=== PATIENT | male | born 1985 | race Caucasian/White ===

== ENCOUNTER → 2018-03-27 07:58 | Outpatient (CLI) | payer BC, SELFPAY ==
--- NOTE | 2018-03-27 08:03 | US_ITS ---
US abdomen limited History:Right upper quadrant pain Ordering Physician:Kiko Clemente MD Patient Age: 32 years Comparison:None Findings: Pancreas:Unremarkable. No obvious mass or abnormal fluid collection. No ductal dilatation Liver:No focal liver lesions demonstrated. Homogeneous echogenicity. No intrahepatic biliary ductal dilatation evident Right Kidney:Unremarkable. Normal size and echogenicity. No hydronephrosis Gallbladder:No gallstones, gallbladder wall thickening, pericholecystic fluid, or biliary dilatation. Impression:Negative gallbladder/right upper quadrant ultrasound
[2018-03-27 09:40] LABS: Amylase 108 U/L (25-125); Lipase 113 u/L (73-393)
== END ==
PROVIDERS: Physician Assistant; PCP Family Medicine; Visit Provider Family Medicine
DX: R74.8 Abnormal levels of other serum enzymes (principal)
CPT/HCPCS: 36415; 76705; 82150; 83690

== ENCOUNTER → 2019-07-15 13:43 | Outpatient (CLI) | payer BC, SELFPAY ==
--- NOTE | 2019-07-15 13:50 | US_ITS ---
PROCEDURE: US SOFT TISSUE HEAD AND NECK CLINICAL INDICATION: LYMPHADENOPATHY COMPARISON: No exams were available for comparison FINDINGS: There are multiple hypoechoic nodules throughout the soft tissues of the left neck in the area of palpable abnormalities. One of the nodules in the area of palpable abnormality measures 1.3 by 3.9 centimeters. Multiple other smaller nodes are noted. At least 7 separate nodes are noted. What is probably a left submandibular lymph node 3.7 x 3.3 centimeters is also noted. Some of the nodes appear hyperemic with increased color Doppler blood flow. Consider postcontrast CT soft tissues of the neck for further evaluation. IMPRESSION: Lymphadenopathy as described. Post inflammatory or neoplastic etiologies would have to be considered. Postcontrast CT soft tissues of the neck is recommended for further assessment. Dictated by: German Diehl 07/15/2019 16:26 Electronically signed by German Diehl in [facility] 07/15/2019 16:26
== END ==
PROVIDERS: PCP Physician Assistant; Visit Provider Physician Assistant
DX: R59.1 Generalized enlarged lymph nodes (principal)
CPT/HCPCS: 76536

== ENCOUNTER → 2019-07-21 16:17 | Outpatient (POV) | payer BC, SELFPAY | PROVIDERS: PCP Physician Assistant; Visit Provider Nurse Practitioner Family | DX: Z00.00 Encounter for general adult medical examination without abnormal findings (principal) ==

== ENCOUNTER → 2019-07-23 10:29 | Outpatient (CLI) | payer BC, SELFPAY ==
--- NOTE | 2019-07-23 10:33 | CT_ITS ---
PROCEDURE: CT SOFT TISSUE NECK W CON CLINICAL HISTORY: LYMPHADENOPATHY COMPARISON: US SOFT TISSUE HEAD AND NECK from 07/15/2019 TECHNIQUE: IV contrast: 75ml Optiray 350 Axial images obtained with sagittal and coronal reformats. All CT scans at the facility use one or more dose reduction, viz: automated exposure control, ma/kV adjustment per patient size (including targeted exams where dose is matched to indication, i.e. head), or iterative reconstruction technique. FINDINGS: There is mild thickening of the adenoids. There is some mild asymmetric thickening of the left palatine tonsils. No obvious abscess. Small calcification is present in the right tonsillar region. The epiglottis and glottic region have an unremarkable appearance as does the thyroid gland. There is a small nodular density in the left parotid gland laterally at 7 mm nonspecific possibly due to small lymph node. Small nodular density is present in the right parotid inferiorly at 6 mm and could also be due to small lymph node. The submandibular glands have an unremarkable appearance. There are enlarged left-sided cervical lymph nodes with the largest node in the jugulodigastric region measuring 3.3 x 2.3 cm superior to the hyoid gland indicating a level 2 lymph node. Enlarged nodes are present posterior to the left sternocleidomastoid at and below the level of the hyoid/level 3 nodes in level 4 nodes with level 3 nodes measuring up to 2.3 by 2.9 cm. Mildly prominent supraclavicular nodes are also present on the left. There are few small nodes in the superior mediastinum. A few small nodes are present in the right neck measuring up to 1.2 x 0.9 cm. No evidence of abscess. The lung apices are clear. IMPRESSION: Left-sided cervical adenopathy as described above. These nodes could be reactive as a response to inflammation or infection. Neoplasm such is lymphoma or metastatic disease is included in the differential diagnosis. The nodes may be slightly smaller compared to the ultrasound measurements of 07/15/2019. Please correlate with physical exam. Ultrasound-guided fine needle aspiration could be performed if clinically desired. Dictated by: Sher Persaud MD 07/24/2019 07:15 Electronically signed by Sher Persaud MD in [facility] 07/24/2019 07:15
== END ==
PROVIDERS: PCP Physician Assistant; Visit Provider Physician Assistant
DX: R59.1 Generalized enlarged lymph nodes (principal)
CPT/HCPCS: 70491; Q9967

== ENCOUNTER → 2019-08-06 12:30 | Outpatient (CLI) | payer BC, SELFPAY ==
--- NOTE | 2019-08-06 12:35 | US_ITS ---
PROCEDURE: US FNA LYMPH NODE CLINICAL INDICATION: LYMPHADENOPATHY COMPARISON: CT SOFT TISSUE NECK W CON from 07/23/2019 TECHNIQUE: Following obtaining informed consent, using aseptic technique and local anesthesia with buffered lidocaine, fine-needle aspiration was performed of the nodule of interest using sonographic guidance. Two passes were made into the nodule with a 21 gauge needle. Specimen was given to cytology. 3 passes were then made into the left neck nodule with an 18 gauge core biopsy needle. One of these was put in RPMI. These passes were performed with some difficulty at with as it was difficult to penetrate the nodule with the core biopsy needle. This was performed carefully due to the close nature of the carotid artery. Patient tolerated the procedure well without evidence of immediate complication. FINDINGS: CYTOLOGY: Negative for malignant cells. Please see cytology report Core biopsy: Fibrovascular connective tissue. No lymph node tissue present Flow cytometry: Prominent lymphoid population. No evidence of non-Hodgkin's lymphoma IMPRESSION: Uneventful ultrasound-guided fine needle aspiration and core biopsy of left neck lymph node. Cytology and flow cytometry are negative for malignancy/lymphoma. The regular core biopsy did not show evidence of lymph node tissue. If no further intervention is performed then, would recommend short-term CT follow-up in 6-8 weeks to confirm stability. The patient tolerated the procedure well without evidence of immediate complications and left the ultrasound suite in stable condition. Dictated by: Sher Persaud MD 08/11/2019 10:27 Electronically signed by Sher Persaud MD in [place] 08/11/2019 10:27
== END ==
PROVIDERS: PCP Physician Assistant; Visit Provider Physician Assistant
DX: R59.1 Generalized enlarged lymph nodes (principal)
CPT/HCPCS: 10005; 76942

== ENCOUNTER 2020-03-11 19:43 | Emergency (ER) | payer BC, SELFPAY ==
[2020-03-11 20:42] VITALS: BP 127/70; PULSE 75; RESP 16; TEMP 36.8; O2SAT 100; BMI 31.0
--- NOTE | 2020-03-11 20:54 | HMH.EDUTC ---
[facility] [place] Disposition Clinical Impression: Viral syndrome Disposition: Home, Self-Care Condition on Discharge: Good Instructions: DI for Viral Syndrome, Preventing the Spread of Coronavirus Discharge Instructions Additional Instructions: Drink plenty of fluids. Take tylenol or ibuprofen for pain or fever. Take the medications as directed. Follow up with your regular doctor. GO TO THE ER FOR ANY WORSENING SYMPTOMS FOLLOW THE DIRECTIONS ON THE COVID-19 HAND OUT THAT WE GAVE YOU REGARDING SELF-ISOLATION UNTIL YOU KNOW YOUR COVID-19 RESULTS Prescriptions: Azithromycin [Z-Gamal 250mg Tab*] 250 mg PO UD DOSE PK #6 tab Transmission Status: Received by [facility] #[id number] Referrals: Cayla Guillermo PA [Primary Care Provider] - Time of Disposition: 21:03 Medical Decision Making - Medical Records Medical records reviewed: No: I reviewed the patient's medical records. - Naveed Inquiry Pt receiving controlled substance: No Vital Signs: 03/11/20 20:42 03/11/20 21:10 Temperature 98.3 F 98.3 F Temperature Source Oral Oral Pulse Rate 75 Pulse Rate [Radial] 75 Respiratory Rate 16 16 Blood Pressure 127/70 Blood Pressure [Right Arm] 127/70 Blood Pressure Mean [Right Arm] 89 Blood Pressure Source Automatic Cuff Blood Pressure Source [Right Arm] Automatic Cuff Blood Pressure Position Sitting Blood Pressure Position [Right Arm] Sitting 02 Sat by Pulse Oximetry 100 Oxygen Delivery Method Room Air Room Air Orders (Tests/Meds): ORDERS Category Date Time Status Full Resp Panel w/COVID ([facility]) Routine Lab 03/11/20 20:40 Received [facility] [place] HPI - General Stated complaint: citlalli covid test Time Seen by Provider: 03/11/20 20:54 Mode of Arrival: Ambulatory Source of Information: Patient Limitations: No Limitations Description of Symptoms (Recalled from Triage Doc. by RN): citlalli covid test, exposed one week ago HEENT Symptoms (Recalled from RN notes): Yes Resp Symptoms (Recalled from RN notes): No Skin Symptoms (Recalled from RN notes): No MS Symptoms (Recalled from RN notes): No Functional Status (Recalled from RN notes): wnl - History of Present Illness Provider Complaint: He states that he was exposed to covid approx 1 week ago. Since then he has felt fine until today. He has started to have sinus congestion and a dry cough. - Related Data Home Medications Medication Instructions Recorded Confirmed Acetaminophen/Dextromethorphan 2 tbsp PO NEEDED PRN 05/16/18 05/16/18 [Daytime Cold & Cough Liquid] Dm/P-Ephed/Acetaminoph/Doxylam 2 tbsp PO NEEDED PRN 05/16/18 05/16/18 [Night Time Cold Med Liquid] Previous Rx's Medication Instructions Recorded Azithromycin [Z-Gamal 250mg Tab*] 250 mg PO UD DOSE PK #6 tab 05/11/19 predniSONE [Prednisone 5mg 5 mg PO DAILY 6 Days #21 tab 05/11/19 Tab] Azithromycin [Z-Gamal 250mg Tab*] 250 mg PO UD DOSE PK #6 tab 03/11/20 Allergies Allergy/AdvReac Type Severity Reaction Status Date / Time shellfish derived Allergy Mild Verified 05/16/18 09:12 egg AdvReac Nausea Verified 05/16/18 09:12 - Worker's Comp Is this a Worker's Comp case?: No [facility] History - Hepatitis A Screen Drug use history?: No High risk sexual behaviors?: No History of sexually transmitted infection?: No Currently employed?: No Childcare worker?: No Do you have indoor plumbing?: Yes Do you have electricity?: Yes Attestation statement:: This patient has been screened for Hepatitis A risk factors. I have reviewed the patient's past medical history: Yes Medical History: Reports:: Gastroesophageal Reflux Disease(GERD) Denies:: Diabetes Mellitus Type 1, Diabetes Mellitus Type 2, Internal Pacemaker, Lung Disease, Seizures Other Surgeries: No: Pacemaker Comment: oral sx - Social History Smoking Status: Current every day smoker Tobacco Type: cigarettes # Packs/Day (cigarettes): 1 Alcohol Intake: never Occupational Status: other Housing: house
[2020-03-11 21:10] VITALS: BP 127/70; PULSE 75; RESP 16; TEMP 36.8; O2SAT 100
[2020-03-13 09:27] LABS: Covid-19 Nasal PCR Sendout UK NOT DETECTED
== END 2020-03-11 21:11 | disposition home or self-care (01) ==
PROVIDERS: Emergency Provider Nurse Practitioner Family; PCP Physician Assistant
DX: Z20.828 Contact with and (suspected) exposure to other viral communicable diseases (principal); B34.9 Viral infection, unspecified; K21.9 Gastro-esophageal reflux disease without esophagitis; F17.210 Nicotine dependence, cigarettes, uncomplicated
CPT/HCPCS: 87581; 87633; 87798; 99201; U0003

== ENCOUNTER 2020-06-09 19:14 | Emergency (ER) | payer BC, SELFPAY ==
[2020-06-09 19:14] VITALS: BP 137/87; PULSE 88; RESP 16; TEMP 36.8; O2SAT 99; BMI 27.1
--- NOTE | 2020-06-09 19:33 | HMH.EDUTC ---
[facility] [place] Clinical Impression: Exposure to COVID-19 virus Disposition: Home, Self-Care Condition on Discharge: Good Instructions: DI for COVID-19 (Suspected or Confirmed ), COVID-19: Testing and Tracing, Preventing the Spread of Coronavirus Discharge Instructions Additional Instructions: *Monitor Temp, Over the counter Motrin or Tylenol as directed/as needed Tylenol every 4 hours and Motrin every 6 hours (as long as your family doctor has told you that you can take it) for fever or pain. and straight to ER if unable to lower temp less than 101.0 after medication given Follow up IMMEDIATELY for new or worsening symptoms or no Noticeable improvement over the next 48-72 hours. 911 for difficulty breathing or swallowing You were tested for today for COVID19 your test result should be back in the next 24-48 hours, you may call to the [facility] to see if your test results are back in the next 48 hours [phone] [facility] hours are 9am-9pm You was given a handout with instructions for Self Quarantine and Self isolation for while you wait on test results and what to do if they are positive If you are positive the Health Dept will be contacting you also Referrals: Cayla Guillermo PA [Primary Care Provider] - As needed Forms: Work/School Release Time of Disposition: 19:41 Medical Decision Making - Naveed Inquiry Pt receiving controlled substance: No Naveed was queried for this patient: No Vital Signs: 06/09/20 19:14 Temperature 98.2 F Temperature Source Oral Pulse Rate [Right] 88 Respiratory Rate 16 Blood Pressure [Right Arm] 137/87 Blood Pressure Mean [Right Arm] 103 02 Sat by Pulse Oximetry 99 Orders (Tests/Meds): ORDERS Category Date Time Status Covid-19 Nasal PCR Sendout P&C Stat Lab 06/09/20 19:16 Ordered [facility] [place] HPI - General Stated complaint: covid test Time Seen by Provider: 06/09/20 19:33 Description of Symptoms (Recalled from Triage Doc. by RN): pt request COVID test pt has no symptoms HEENT Symptoms (Recalled from RN notes): No Resp Symptoms (Recalled from RN notes): No Skin Symptoms (Recalled from RN notes): No MS Symptoms (Recalled from RN notes): No Functional Status (Recalled from RN notes): wnl - History of Present Illness Provider Complaint: Patient states that he was around someone last week that tested positive for COVID States that he is not having any symptoms but wanted to get tested to see if he may have it - Related Data Home Medications Medication Instructions Recorded Confirmed Acetaminophen/Dextromethorphan 2 tbsp PO NEEDED PRN 05/16/18 05/16/18 [Daytime Cold & Cough Liquid] Dm/P-Ephed/Acetaminoph/Doxylam 2 tbsp PO NEEDED PRN 05/16/18 05/16/18 [Night Time Cold Med Liquid] Previous Rx's Medication Instructions Recorded Azithromycin [Z-Gamal 250mg Tab*] 250 mg PO UD DOSE PK #6 tab 05/11/19 predniSONE [Prednisone 5mg 5 mg PO DAILY 6 Days #21 tab 05/11/19 Tab] Azithromycin [Z-Gamal 250mg Tab*] 250 mg PO UD DOSE PK #6 tab 03/11/20 Allergies Allergy/AdvReac Type Severity Reaction Status Date / Time shellfish derived Allergy Mild Verified 06/09/20 19:24 egg AdvReac Nausea Verified 06/09/20 19:24 - Worker's Comp Is this a Worker's Comp case?: No Is this an [facility] Worker's Comp?: No Is this a [place] Worker's Comp?: No H History - Hepatitis A Screen Drug use history?: No High risk sexual behaviors?: No History of sexually transmitted infection?: No Currently employed?: No Childcare worker?: No Do you have indoor plumbing?: Yes Do you have electricity?: Yes Attestation statement:: This patient has been screened for Hepatitis A risk factors. I have reviewed the patient's past medical history: Yes Medical History: Reports:: Gastroesophageal Reflux Disease(GERD) Denies:: Diabetes Mellitus Type 1, Diabetes Mellitus Type 2, Internal Pacemaker, Lung Disease, Seizures Other Surgeries: No: Pacemaker Comment: oral sx - Social History Smok
[2020-06-09 19:55] VITALS: BP 137/87; PULSE 88; RESP 16; TEMP 36.8; O2SAT 99
[2020-06-11 07:54] LABS: Covid-19 Nasal PCR Sendout P&C NEGATIVE
== END 2020-06-09 19:56 | disposition home or self-care (01) ==
PROVIDERS: Emergency Provider Nurse Practitioner; PCP Physician Assistant
DX: Z20.822 Contact with and (suspected) exposure to COVID-19 (principal); K21.9 Gastro-esophageal reflux disease without esophagitis; F17.210 Nicotine dependence, cigarettes, uncomplicated
CPT/HCPCS: 99202; G0463; U0004

== ENCOUNTER 2020-08-13 21:40 | Emergency (ER) | payer BC, SELFPAY ==
--- NOTE | 2020-08-13 21:35 | ECG_ITS ---
APPROVED REPORT Exam: Resting ECG HR:113 bpm ECG Measurements Heart Rate 113 AXES RI 134 P 53 QRSd 82 QRS 69 QT 318 T 24 QTc 436 Conclusion Sinus tachycardia Otherwise normal ECG Electronically signed by : Bryan Batista, 08/14/2020 07:09:36
[2020-08-13 21:41] VITALS: BP 128/75; PULSE 119; RESP 18; TEMP 36.9; O2SAT 98; BMI 32.5
--- NOTE | 2020-08-13 21:47 | XR_ITS ---
PROCEDURE: XR CHEST 2V CLINICAL HISTORY: chest pain COMPARISON: CT CT ANGIO CHEST from 08/13/2020 FINDINGS: The cardiomediastinal silhouette and pulmonary vascularity are within normal limits. Patchy density is present in the left lung base consistent an area of atelectasis or infiltrate with possible small left pleural effusion. No acute bony abnormalities. IMPRESSION: Left basilar infiltrate and/or atelectatic change with possible small effusion Dictated by: Sher Persaud MD 08/14/2020 07:37 Sher Persaud MD in [place] 08/14/2020 07:37
--- NOTE | 2020-08-13 21:47 | CT_ITS ---
PROCEDURE: CT ANGIO CHEST CLINCIAL INDICATION: pain with inspiration, left-sided chest pain increasing with inspiration Chest pain with inspiration COMPARISON: CT CT SOFT TISSUE NECK W CON from 07/23/2019 TECHNIQUE: IV Contrast: 70ML Isovue 370 Axial images obtained with sagittal and coronal reformats. All CT scans at the facility use one or more dose reduction, viz: automated exposure control, ma/kV adjustment per patient size (including targeted exams where dose is matched to indication, i.e. head), or iterative reconstruction technique. FINDINGS: HEART AND MEDIASTINAL STRUCTURES: No evidence of pulmonary embolus, aortic aneurysm, or aortic dissection. LUNGS AND PLEURAL SPACES: Atelectatic changes are present in the lung bases left greater than right with trace left-sided effusion.. BONY STRUCTURES: No acute bony findings. UPPER ABDOMEN: Fatty liver ADDITIONAL FINDINGS: Prominent and mildly enlarged left lower cervical and supraclavicular lymph nodes measuring up to 1.8 x 1.2 cm. There are small prevascular nodes in the mediastinum, axilla, and upper abdomen at the GE junction area. IMPRESSION: 1. No evidence of pulmonary embolus, aortic aneurysm, or aortic dissection. 2. Bibasilar atelectasis left greater than right with trace left-sided effusion 3. Scattered small cervical lymph nodes in the lower cervical and left supraclavicular region as well as the prevascular space and upper abdomen. Dictated by: Sher Persaud MD 08/14/2020 09:03 Sher Persaud MD in [place] 08/14/2020 09:03
[2020-08-13 21:56] LABS: Basophils # 0.1 K/mm3 (0-0.2); Basophils % 0.7 % (0.1-2.0); Eosinophils # 1.5 K/mm3 (0.0-0.4); Hematocrit 44.9 % (42.0-52.0); Hemoglobin 15.1 g/dL (14.1-18.0); Lymphocytes # 3.1 K/mm3 (0.7-4.5); Lymphocytes % 25.7 % (10-50); Mean Corpuscular HGB Conc 33.5 g/dL (31.8-35.4); Mean Corpuscular Hemoglobin 29.7 pg (27.0-31.2); Mean Corpuscular Volume 88.5 fl (80-94); Mean Platelet Volume 8.4 fl (7.4-10.4); Monocytes # 0.9 K/mm3 (0.1-1.0); Monocytes % 7.6 % (1.7-9.3); Neutrophils # 6.5 K/mm3 (1.8-7.8); Platelet Count 256 K/mm3 (142-424); Red Blood Count 5.07 M/mm3 (4.60-6.20); Red Cell Distribution Width 13.4 % (11.5-17.5)
--- NOTE | 2020-08-13 21:58 | HMH.EDCP ---
ED Disposition Clinical Impression: Pleurisy CAP (community acquired pneumonia) Qualifiers: Laterality: unspecified laterality Qualified Code(s): J18.9 - Pneumonia, unspecified organism Disposition: Home, Self-Care Condition on Discharge: Good Instructions: DI for Atypical Chest Pain Additional Instructions: fluids and see pcp for follow up Prescriptions: levoFLOXacin [Levaquin 500mg tab] 500 mg PO DAILY #7 tab Transmission Status: Pending to [facility] # predniSONE [Prednisone 20mg Tab] 20 mg PO BID #10 tab Transmission Status: Pending to [facility] # Referrals: Kiko Clemente MD [Primary Care Provider] - - Critical Care Critical Care Time: No Attestation: On 08/13/20, the high probability of a clinically significant, sudden or life threatening deterioration of the following system(s) required my full and direct attention, intervention and personal management. The time I documented below is in addition to time spent performing reported procedures but includes the following listed in this critical care notation. Medical Decision Making - Medical Records Medical records reviewed: Yes: I reviewed the patient's medical records. - Naveed Inquiry Pt receiving controlled substance: No Vital Signs: 08/13/20 21:41 08/13/20 23:30 Temperature 98.4 F Temperature Source Oral Pulse Rate 99 H Pulse Rate [Right] 119 H Respiratory Rate 18 Blood Pressure 109/56 L Blood Pressure [Right Arm] 128/75 Blood Pressure Mean 74 Blood Pressure Mean [Right Arm] 92 Blood Pressure Source [Right Arm] Automatic Cuff Blood Pressure Position [Right Arm] Supine 02 Sat by Pulse Oximetry 98 97 Oxygen Delivery Method Room Air - Lab Data Lab results reviewed: Yes: I reviewed the patient's lab results. Lab Results 08/13/20 21:40: WBC 12.0 H, RBC 5.07, Hgb 15.1, Hct 44.9, MCV 88.5, MCH 29.7, MCHC 33.5, RDW 13.4, Plt Count 256, MPV 8.4, Neut % (Auto) 54.0, Lymph % (Auto) 25.7, [place] % (Auto) 7.6, Eos % (Auto) 12.0, Baso % (Auto) 0.7, Neut # (Auto) 6.5, Lymph # (Auto) 3.1, [place] # (Auto) 0.9, Eos # (Auto) 1.5 H, Baso # (Auto) 0.1, ESR 16 H 08/13/20 21:40: Sodium 138, Potassium 3.9, Chloride 104, Carbon Dioxide 25, Anion Gap 12.9, BUN 14, Creatinine 1.00, Estimated Creat Clear 150, Estimated GFR 87, Est GFR ( Amer) 105, Glucose 107 H, Calcium 9.4, Total Bilirubin 0.6, Direct Bilirubin 0.0, Conjugated Bilirubin 0.0, Indirect Bilirubin 0.6, Unconjugated Bilirubin 0.6, AST 29, ALT 22, Alkaline Phosphatase 124, Troponin I < 0.01, C-Reactive Protein 44.4 H, Total Protein 8.0, Albumin 4.6, Procalcitonin 0.051 Result diagrams: 08/13/20 21:40 08/13/20 21:40 Orders (Tests/Meds): ED MEDICATIONS Generic Name Dose Route Start Last Admin Trade Name Freq PRN Reason Stop Dose Admin Sodium Chloride 1,000 mls @ 999 mls/hr 08/13/20 22:00 08/13/20 22:36 Sod Chlor 0.9% 1000ml Bag IV 08/13/20 23:00 999 mls/hr .Q1H1M ANTHONY Administration Discontinued Medications Generic Name Dose Route Start Last Admin Trade Name Freq PRN Reason Stop Dose Admin Aspirin 324 mg 08/13/20 21:51 08/13/20 21:51 Aspirin 81mg Chewable Tablet PO 08/13/20 21:52 324 mg ONCE ONE Administration Iopamidol 70 ml 08/13/20 22:36 08/13/20 22:37 Iopamidol-370 (76%);100ml Bottle IV 08/13/20 22:37 70 ml ONCE ONE Administration Ketorolac Tromethamine 30 mg 08/13/20 21:51 08/13/20 21:52 Ketorolac 30mg/Ml Vial IV 08/13/20 21:52 30 mg ONCE ONE Administration Levofloxacin 500 mg 08/14/20 00:42 Levofloxacin 500mg Tab PO 08/14/20 00:43 ONCE ONE Protocol Methylprednisolone Sodium Succinate 125 mg 08/13/20 21:52 08/13/20 21:52 Methylprednisolone Sod Succ 125mg Vial IV 08/13/20 21:53 125 mg ONCE ONE Administration Sodium Chloride 50 ml 08/13/20 22:36 08/13/20 22:37 0.9 % Sodium Chloride 50 Ml Vial IV 08/13/20 22:37 50 ml ONCE ONE Administrat
[2020-08-13 22:05] LABS: Alanine Aminotransferase 22 U/L (12-78); Albumin Level 4.6 g/dl (3.5-5.0); Alkaline Phosphatase 124 U/L (38-126); Anion Gap 12.9 mEq/L (5-15); Aspartate Amino Transferase 29 U/L (17-59); Bilirubin,Indirect 0.6 mg/dL (0.0-0.9); Bilirubin,Total 0.6 mg/dl (0.2-1.3); Bilirubin,Unconjugated 0.6 mg/dL (0.0-1.1); Blood Urea Nitrogen 14 mg/dl (9-20); Calcium 9.4 mg/dl (8.4-10.2); Carbon Dioxide 25 mmol/L (22.0-30.0); Chloride 104 mmol/L (98-107); Creatinine Clearance Estimated 150 mL/min (50-200); Estimated Glomerular Filt Rate 87 ml/min (>60); GFR (African American) 105 ML/MIN (>60); Glucose 107 mg/dl (74-100); Potassium 3.9 mmoL/L (3.5-5.1); Sodium 138 mmol/L (136-145)
[2020-08-13 22:10] LABS: C-Reactive Protein 44.4 mg/L (0-4)
[2020-08-13 22:22] LABS: Erythrocyte Sedimentation Rate 16 mm/hr (0-15)
[2020-08-13 22:23] LABS: Troponin I < 0.01 ng/ml (0.00-0.034)
[2020-08-13 22:26] LABS: Procalcitonin 0.051 ng/mL (0.0-2.0)
[2020-08-13 23:30] VITALS: BP 109/56; PULSE 99; O2SAT 97
[2020-08-13 23:45] VITALS: PULSE 100; O2SAT 97
[2020-08-14] VITALS: BP 119/62; PULSE 97; O2SAT 94
[2020-08-14 00:15] VITALS: PULSE 97; O2SAT 96
[2020-08-14 01:04] LABS: Mycoplasma Pneumo IGM (Rapid) Non-Reactive (Non-Reactiv)
[2020-08-14 01:36] VITALS: BP 123/69; PULSE 97; RESP 16; TEMP 36.6; O2SAT 97
== END 2020-08-14 01:37 | disposition home or self-care (01) ==
PROVIDERS: Emergency Provider Emergency Medicine; PCP Family Medicine
DX: R09.1 Pleurisy (principal); J18.9 Pneumonia, unspecified organism; K21.9 Gastro-esophageal reflux disease without esophagitis; F17.210 Nicotine dependence, cigarettes, uncomplicated
CPT/HCPCS: 71046; 71275; 80048; 80076; 84145; 84484; 85025; 85651; 86140; 86738; 93005; 96365; 96375; 99283; Q9967; U0003

== ENCOUNTER → 2021-05-14 11:25 | Outpatient (CLI) | payer BC, SELFPAY | PROVIDERS: PCP Physician Assistant; Visit Provider Nurse Practitioner Family | DX: Z20.822 Contact with and (suspected) exposure to COVID-19 (principal) | CPT/HCPCS: C9803; U0003; U0005 ==

== ENCOUNTER 2023-06-22 14:51 | Outpatient (CLI) | payer BC, SELFPAY ==
[2023-06-22 14:59] LABS: Coronavirus 19, PCR Not Detected (NotDetected); Influenza A, PCR Not Detected (NotDetected); Influenza B, PCR Not Detected (NotDetected)
== END 2023-06-22 23:59 ==
LOC: LAB 14:53
PROVIDERS: PCP Physician Assistant; Visit Provider Physician Assistant
DX: R50.9 Fever, unspecified (principal)
CPT/HCPCS: 87636